=== PATIENT | female | born 1990 | race Two or more races ===

== ENCOUNTER 2019-09-17 09:49 | Emergency (ER) | payer MEDICAID, OTHER ==
[~2019-09-17] VITALS: Ht 154.9 cm; Wt 68.0 kg
[2019-09-17 09:53] VITALS: BP 124/77
[2019-09-17] MEDS ORDERED: KETOROLAC TROMETH 60MG/2ML VIAL IM ONE (10:30)
== END 2019-09-17 10:54 | disposition home or self-care (01) ==
LOC: ER 09:49
DX: K04.7 Periapical abscess without sinus (principal)
CPT/HCPCS: 96372; 99283; J1885